=== PATIENT | female | born 1955 | race Caucasian/White ===

== ENCOUNTER 2020-04-11 13:48 | Emergency (ER) | payer OTHER ==
[~2020-04-11] VITALS: Ht 170.2 cm; Wt 77.6 kg
[2020-04-11 13:59] VITALS: Ht 170.2 cm; Wt 77.6 kg
[2020-04-11 16:08] LABS: AMPHETAMINE QUAL UR NONE DETECTED (See below)
[2020-04-11 17:39] VITALS: BP 178/80
== END 2020-04-11 17:39 | disposition home or self-care (01) ==
LOC: ED 13:48
PROVIDERS: Emergency Medicine
DX: R20.2 Paresthesia of skin (principal); M81.0 Age-related osteoporosis without current pathological fracture; H53.8 Other visual disturbances; Z88.2 Allergy status to sulfonamides

== ENCOUNTER 2020-04-23 12:27 | Emergency (ER) | payer OTHER ==
[~2020-04-23] VITALS: Ht 152.4 cm; Wt 78.0 kg
[2020-04-23 12:35] VITALS: Ht 152.4 cm; Wt 78.0 kg
[2020-04-23 14:27] VITALS: BP 155/69
== END 2020-04-23 14:27 | disposition home or self-care (01) ==
LOC: ED 12:27
DX: S60.221A Contusion of right hand, initial encounter (principal); S60.551A Superficial foreign body of right hand, initial encounter; M81.0 Age-related osteoporosis without current pathological fracture; Z88.2 Allergy status to sulfonamides; W22.8XXA Striking against or struck by other objects, initial encounter; Y93.89 Activity, other specified; Y92.89 Other specified places as the place of occurrence of the external cause; Y99.8 Other external cause status

== ENCOUNTER 2020-05-25 10:48 | Emergency (ER) | payer OTHER ==
[~2020-05-25] VITALS: Ht 165.1 cm; Wt 79.4 kg
[2020-05-25 11:11] VITALS: Ht 165.1 cm; Wt 79.4 kg
[2020-05-25 11:50] LABS: microscopic required? YES; urine erythrocyte 2+ (NEGATIVE)
[2020-05-25 12:04] LABS: CALCIUM 9.2 mg/dL (8.5-10.1); CREATININE SERUM 1.1 mg/dL (0.6-1.0)
[2020-05-25 12:09] LABS: BILIRUBIN TOTAL 0.89 mg/dL (0.20-1.00); TOTAL PROTEIN, SERUM 7.2 g/dL (6.4-8.2)
[2020-05-25 12:25] LABS: ALBUMIN 3.3 g/dL (3.4-5.0)
[2020-05-25 12:31] LABS: BASOPHIL % 0.5 % (0-2); PLATELET COUNT 318 x10^3mcL (130-400); RED CELL DISTRIBUTION WIDTH 13.4 % (11.5-14.5)
[2020-05-25 14:56] VITALS: BP 159/70
== END 2020-05-25 14:56 | disposition home or self-care (01) ==
LOC: ED 10:48
PROVIDERS: Student in an Organized Health Care Education/Training Program
DX: N28.1 Cyst of kidney, acquired (principal); M81.0 Age-related osteoporosis without current pathological fracture; R31.9 Hematuria, unspecified; K42.9 Umbilical hernia without obstruction or gangrene; K44.9 Diaphragmatic hernia without obstruction or gangrene; N18.9 Chronic kidney disease, unspecified; Z88.2 Allergy status to sulfonamides
CPT/HCPCS: Q0092; Q9967

== ENCOUNTER 2020-09-22 19:43 | Emergency (ER) | payer OTHER ==
[~2020-09-22] VITALS: Ht 165.1 cm; Wt 79.4 kg
[2020-09-22 19:55] VITALS: Ht 165.1 cm; Wt 79.4 kg
[2020-09-22 21:14] VITALS: BP 156/78
== END 2020-09-22 21:14 | disposition home or self-care (01) ==
LOC: ED 19:43
DX: M25.571 Pain in right ankle and joints of right foot (principal); M19.90 Unspecified osteoarthritis, unspecified site; I10 Essential (primary) hypertension; E78.00 Pure hypercholesterolemia, unspecified; Z90.710 Acquired absence of both cervix and uterus; Z90.49 Acquired absence of other specified parts of digestive tract; Z88.2 Allergy status to sulfonamides